=== PATIENT | female | born 1980 | race Hispanic/Latino ===

== ENCOUNTER 2018-12-01 07:36 | Emergency (ER) | payer MEDICARE, OTHER ==
[~2018-12-01] VITALS: Ht 165.1 cm; Wt 136.1 kg
[~2018-12-01 07:36] MED LIST: GABAPENTIN100 MG; NAPROSYN500 MG; ROBAXIN500 MG; SINGULAIR10 MG; Z.0.NORCO 10-325 T1; Z.0.SINGULAIR10 MG; Z.0.SOMA350 MG; Z.0.XANAX1 MG; [UNRECOGNIZED DRUG - OTHER]
--- OUTSIDE RECORDS SUMMARY | 2018-12-01 07:38 | XMS REPORT ---
Author Author [facility] Address Unknown Phone Unavailable Care Team Providers Care Farm Management Adviser Name Role Phone Unavailable Unavailable Payers Payer Name Policy Type Policy Number Effective Date Expiration Date Problems This patient has no known problems. Allergies, Adverse Reactions, Alerts Allergy Name Allergy Type Status Severity Reaction(s) Onset Date Inactive Date Treating Clinician Comments promethazine HCl DA Active U 2017-10-19 00:00:00 meperidine HCl DA Active U 2017-10-19 00:00:00 morphine DA Active U 2017-10-19 00:00:00 Medications This patient has no known medications.
[2018-12-01] MEDS ORDERED: KETOROLAC TROMETHAMINE 30 MG/ML VIAL IV STA (08:37)
[2018-12-01] MEDS ORDERED: DEXAMETHASONE SOD PHOS 10 MG/1 ML VIAL IV ONE (08:45)
[2018-12-01 08:55] LABS: BASOPHILS # (AUTO) 0.1 (0.0-0.1); BASOPHILS % 0.5 % (0.0-1.0); EOSINOPHILS # (AUTO) 0.2 (0.0-0.4); EOSINOPHILS % 1.9 % (0.0-6.0); HEMOGLOBIN 12.6 g/dL (12.0-16.0); LYMPHOCYTES # (AUTO) 3.2 (1.0-3.2); LYMPHOCYTES % 28.9 % (18.0-39.1); MEAN CORPUSCULAR HEMOGLOBIN 29.7 pg (28-32); MEAN CORPUSCULAR HGB CONC 32.3 g/dL (31-35); MONOCYTES # (AUTO) 0.8 (0.2-0.8); MONOCYTES % 7.4 % (4.4-11.3); NEUTROPHILS # (AUTO) 6.7 (2.1-6.9); NEUTROPHILS % 60.8 % (38.7-80.0); PLATELET COUNT 291 x10e3/uL (140-360); RED BLOOD COUNT 4.24 x10e6/uL (3.6-5.1); RED CELL DISTRIBUTION WIDTH 14.5 % (11.7-14.4)
[2018-12-01 09:09] LABS: ALANINE AMINOTRANSFERASE 13 IU/L (0-55); ALBUMIN 3.1 g/dL (3.5-5.0); ALBUMIN/GLOBULIN RATIO 0.9 (0.8-2.0); ALKALINE PHOSPHATASE 88 IU/L (40-150); ANION GAP 10.5 mmol/L (8-16); BLOOD UREA NITROGEN 15 mg/dL (7-26); BUN/CREATININE RATIO 23 (6-25); CALCIUM 8.6 mg/dL (8.4-10.2); CARBON DIOXIDE 24 mmol/L (22-29); CHLORIDE 103 mmol/L (98-107); CREATININE, SERUM 0.66 mg/dL (0.57-1.11); EST GLOMERULAR FILTRATION RATE > 60 ML/MIN (60-); GLUCOSE 105 mg/dL (74-118); POTASSIUM 3.5 mmol/L (3.5-5.1); SODIUM 134 mmol/L (136-145)
--- NOTE | 2018-12-01 09:33 | Diagnostic Imaging Report ---
EXAMINATION: PA and lateral views of the chest. COMPARISON: None CLINICAL HISTORY: Chest pain DISCUSSION: Lines/tubes: None. Lungs: The lungs are well inflated and clear. There is no evidence of pneumonia or pulmonary edema. Pleura: There is no pleural effusion or pneumothorax. Heart and mediastinum: The cardiomediastinal silhouette is normal. Bones and soft tissues: No acute bony abnormalities. Cervical spine fusion hardware partially visualized. IMPRESSION: No acute cardiopulmonary abnormalities. Signed by: Dr. Marcellus Cabrera M.D. on 12/01/2018 9:29 AM
== END 2018-12-01 10:24 | disposition home or self-care (01) ==
LOC: ER 07:36
DX: R07.89 Other chest pain (principal); R51 Headache; R05 Cough; E66.01 Morbid (severe) obesity due to excess calories
CPT/HCPCS: 36415; 71046; 80053; 81025; 83880; 84484; 85025; 93005; 99284; J1100; J1885

== ENCOUNTER 2019-02-23 17:03 | Emergency (ER) | payer MEDICARE, OTHER ==
[~2019-02-23] VITALS: Ht 165.1 cm; Wt 136.1 kg
--- OUTSIDE RECORDS SUMMARY | 2019-02-23 17:06 | XMS REPORT | Continuity of Care Document ---
Author Author [facility] Interface Address Unknown Phone Unavailable Problems Problem Status Onset Date Classification Date Reported Comments Source Medications Medication Details Route Status Patient Instructions Ordering Provider Order Date Source Alprazolam (Xanax) 1 Mg Tablet, As Needed Active 03/22/2013 [facility] Desloratadine (Clarinex) 5 Mg Tablet, Active 03/22/2013 [facility] Methocarbamol (Robaxin) 500 Mg Tablet, Active 03/22/2013 [facility] Montelukast Sodium (Singulair) 10 Mg Tablet, Active 03/22/2013 [facility] Carisoprodol (Soma) 350 Mg Tablet, As Needed Active 10/24/2012 [facility] Gabapentin 100 Mg Capsule Unknown Dose Active [facility] Hydrocodone Bit/Acetaminophen ([place] 10-325 Tablet) 1 Each Tablet As Needed Active [facility] Montelukast Sodium (Singulair) 10 Mg Tablet Active [facility] Naproxen (Naprosyn) 500 Mg Tablet Unknown Dose Active [facility] Allergies, Adverse Reactions, Alerts Substance Category Reaction Severity Reaction type Status Date Reported Comments Source Morphine rash Mild Allergy to Substance Active 10/30/2011 [facility] promethazine HCl HIVES Unknown Allergy to Substance Active 12/01/2018 [facility] Meperidine rash Mild Allergy to Substance Active 12/01/2018 [facility] Immunizations Immunization Date Given Site Status Last Updated Comments Source Results Order Name Results Value Reference Range Date Interpretation Comments Source Urine human chorionic gonadotropin (hCG) detection NEGATIVE NEGATIVE 12/01/2018 [facility] Blood leukocytes automated count (number/volume) 11.03 4.8 - 10.8 12/01/2018 [facility] Blood erythrocytes automated count (number/volume) 4.24 3.6 - 5.1 12/01/2018 [facility] Blood hemoglobin measurement (moles/volume) 12.6 12.0 - 16.0 12/01/2018 [facility] Automated blood hematocrit (volume fraction) 39.0 34.2 - 44.1 12/01/2018 [facility] Automated erythrocyte mean corpuscular volume 92.0 81 - 99 12/01/2018 [facility] Automated erythrocyte mean corpuscular hemoglobin (mass per erythrocyte) 29.7 28 - 32 12/01/2018 [facility] Automated erythrocyte mean corpuscular hemoglobin concentration measurement (mass/volume) 32.3 31 - 35 12/01/2018 [facility] RDW BldCo-Rto 14.5 11.7 - 14.4 12/01/2018 [facility] Automated blood platelet count (count/volume) 291 140 - 360 12/01/2018 [facility] Automated blood segmented neutrophil count as percentage of total leukocytes 60.8 38.7 - 80.0 12/01/2018 [facility] Automated blood lymphocyte count as percentage ot total leukocytes 28.9 18.0 - 39.1 12/01/2018 [facility] Automated blood monocyte count as percentage of total leukocytes 7.4 4.4 - 11.3 12/01/2018 [facility] Automated blood eosinophil count as percentage of total leukocytes 1.9 0.0 - 6.0 12/01/2018 [facility] Automated blood basophil count as percentage of total leukocytes 0.5 0.0 - 1.0 12/01/2018 [facility] IM GRANULOCYTES % 0.5 0.0 - 1.0 12/01/2018 [facility] Automated blood neutrophil count 6.7 2.1 - 6.9 12/01/2018 [facility] Blood lymphocytes count (number/volume) 3.2 1.0 - 3.2 12/01/2018 [facility] Blood monocytes automated count (number/volume) 0.8 0.2 - 0.8 12/01/2018 [facility] Automated blood eosinophil count 0.2 0.0 - 0.4 12/01/2018 [facility] Automated blood basophil count (count/volume) 0.1 0.0 - 0.1 12/01/2018 [facility] Absolute Immature Granulocyte (auto 0.06 0 - 0.1 12/01/2018 [facility] Serum or plasma sodium measurement (moles/volume) 134 136 - 145 12/01/2018 [facility] Serum or plasma potassium measurement (moles/volume) 3.5 3.5 - 5.1 12/01/2018 [facility] Serum or plasma chloride measurement (moles/volume) 103 98 - 107 12/01/2018 [facility] Serum or plasma carbon dioxide, total measurement (moles/volume) 24 22 - 29 12/01/2018 [facility] Serum or plasma anion gap 10.5 8 - 16 12/01/2018 [facility] Serum or plasma urea nitrogen measurement (mass/volume) 15 7 - 26 12/01/2018 [facility] Serum or plasma creatinine measurement (mass/volume) 0.66 0.57 - 1.11 12/01/2018 [facility] Serum or plasma urea nitrogen/creatinine mass ratio 23 6 - 25 12/01/2018 [facility] Estimated glomerular filtration rate (GFR) determination > 60 60 12/01/2018 [facility] Glucose measurement 105 74 - 118 12/01/2018 [facility] Serum or plasma calcium measurement (mass/volume) 8.6 8.4 - 10.2 12/01/2018 [facility] Serum or plasma total bilirubin measurement (mass/volume) 0.2 0.2 - 1.2 12/01/2018 [facility] Aspartate Amino Transf (AST/SGOT) 14 5 - 34 12/01/2018 [facility] Serum or plasma alanine aminotransferase measurement (enzymatic activity/volume) 13 0 - 55 12/01/2018 [facility] Serum or plasma protein measurement (mass/volume) 6.7 6.5 - 8.1 12/01/2018 [facility] Serum or plasma albumin measurement (mass/volume) 3.1 3.5 - 5.0 12/01/2018 [facility] Plasma globulin measurement (mass/volume) 3.6 2.3 - 3.5 12/01/2018 [facility] Serum or plasma albumin/globulin mass ratio 0.9 0.8 - 2.0 12/01/2018 [facility] Serum or plasma alkaline phosphatase measurement (enzymatic activity/volume) 88 40 - 150 12/01/2018 [facility] BNP Bld-mCnc < 10.0 0 - 100 12/01/2018 [facility] Troponin I measurement by highly sensitive enzyme immunoassay 0.003 0 - 0.300 12/01/2018 [facility] Vital Signs Vital Sign Value Date Comments Source Encounters Location Location Details Encounter Type Encounter Number Reason For Visit Attending Provider ADM Date DC Date Status Source Departed Emergency Room [id number] LEYDI JOHNSON MD 12/01/2018 12/01/2018 [facility] Procedures Procedure Code Date Perfomer Comments Source X-ray of chest, two views [id number] 12/01/2018 [facility]
[2019-02-23] MEDS ORDERED: ULTRAM50 MG PO (17:41)
[2019-02-23] MEDS ORDERED: VALIUM5 MG PO (17:41)
[2019-02-23] MEDS ORDERED: KETOROLAC TROMETHAMINE 60 MG/2 ML VIAL IM ONE (17:45)
[2019-02-23] MEDS ORDERED: DEXAMETHASONE SOD PHOS 10 MG/1 ML VIAL IM ONE (17:45)
[2019-02-23 18:21] VITALS: BP 145/88
== END 2019-02-23 18:35 | disposition home or self-care (01) ==
LOC: ER 17:03
DX: S16.1XXA Strain of muscle, fascia and tendon at neck level, initial encounter (principal); M48.02 Spinal stenosis, cervical region
CPT/HCPCS: 96372; 99283; J1100; J1885

== ENCOUNTER 2019-05-05 07:59 | Emergency (ER) | payer MEDICARE, OTHER ==
[~2019-05-05] VITALS: Ht 165.1 cm; Wt 136.1 kg
[~2019-05-05 07:59] MED LIST changes: +ULTRAM50 MG PO; +VALIUM5 MG PO
[2019-05-05] MEDS ORDERED: ASPIRIN 81 MG CHEW TAB PO ONE (08:00)
[2019-05-05] MEDS ORDERED: NITROGLYCERIN 0.4 MG SUBL SL PRN (08:00)
--- OUTSIDE RECORDS SUMMARY | 2019-05-05 08:02 | XMS REPORT | Continuity of Care Document ---
Author Author [employer] [facility] [employer] Address Unknown Phone Unavailable Care Team Providers Care Extrusion Engineer Name Role Phone [facility] Information [place] Unavailable Unavailable Problems No Data Provided for This Section Medications Medication Details Route Status Patient Instructions Ordering Provider Order Date Source Diazepam (Valium) 5 Mg Tablet Every 6 Hours as needed for Muscle Spasms Active [place] 02/23/2019 [facility] Tramadol Hcl (Ultram) 50 Mg Tablet Every 6 Hours as needed for Pain Active [place] 02/23/2019 [facility] Alprazolam (Xanax) 1 Mg Tablet, As Needed Active 03/22/2013 [facility] Desloratadine (Clarinex) 5 Mg Tablet, Active 03/22/2013 [facility] Methocarbamol (Robaxin) 500 Mg Tablet, Active 03/22/2013 [facility] Montelukast Sodium (Singulair) 10 Mg Tablet, Active 03/22/2013 [facility] Carisoprodol (Soma) 350 Mg Tablet, As Needed Active 10/24/2012 [facility] Gabapentin 100 Mg Capsule Unknown Dose Active [facility] Hydrocodone Bit/Acetaminophen ([place] 10-325 Tablet) 1 Each Tablet As Needed Active [facility] Montelukast Sodium (Singulair) 10 Mg Tablet Active [facility] Naproxen (Naprosyn) 500 Mg Tablet Unknown Dose Active [facility] Allergies, Adverse Reactions, Alerts Substance Category Reaction Severity Reaction type Status Date Reported Comments Source Morphine rash Mild Allergy to Substance Active 10/30/2011 [facility] promethazine HCl HIVES Unknown Allergy to Substance Active 12/01/2018 [facility] Meperidine rash Mild Allergy to Substance Active 12/01/2018 [facility] No Known Drug Allergies Unknown Allergy to Substance Active 02/23/2019 [facility] Immunizations No Data Provided for This Section Results Order Name Results Value Reference Range Date Interpretation Comments Source Urine human chorionic gonadotropin (hCG) detection NEGATIVE NEGATIVE 12/01/2018 [facility] Blood leukocytes automated count (number/volume) 11.03 4.8 - 10.8 12/01/2018 [facility] Blood erythrocytes automated count (number/volume) 4.24 3.6 - 5.1 12/01/2018 [facility] Blood hemoglobin measurement (moles/volume) 12.6 12.0 - 16.0 12/01/2018 [facility] Automated blood hematocrit (volume fraction) 39.0 34.2 - 44.1 12/01/2018 [facility] Automated erythrocyte mean corpuscular volume 92.0 81 - 99 12/01/2018 [facility] Automated erythrocyte mean corpuscular hemoglobin (mass per erythrocyte) 29.7 28 - 32 12/01/2018 [facility] Automated erythrocyte mean corpuscular hemoglobin concentration measurement (mass/volume) 32.3 31 - 35 12/01/2018 [facility] RDW BldCo-Rto 14.5 11.7 - 14.4 12/01/2018 [facility] Automated blood platelet count (count/volume) 291 140 - 360 12/01/2018 [facility] Automated blood segmented neutrophil count as percentage of total leukocytes 60.8 38.7 - 80.0 12/01/2018 [facility] Automated blood lymphocyte count as percentage ot total leukocytes 28.9 18.0 - 39.1 12/01/2018 [facility] Automated blood monocyte count as percentage of total leukocytes 7.4 4.4 - 11.3 12/01/2018 [facility] Automated blood eosinophil count as percentage of total leukocytes 1.9 0.0 - 6.0 12/01/2018 [facility] Automated blood basophil count as percentage of total leukocytes 0.5 0.0 - 1.0 12/01/2018 [facility] IM GRANULOCYTES % 0.5 0.0 - 1.0 12/01/2018 [facility] Automated blood neutrophil count 6.7 2.1 - 6.9 12/01/2018 [facility] Blood lymphocytes count (number/volume) 3.2 1.0 - 3.2 12/01/2018 [facility] Blood monocytes automated count (number/volume) 0.8 0.2 - 0.8 12/01/2018 [facility] Automated blood eosinophil count 0.2 0.0 - 0.4 12/01/2018 [facility] Automated blood basophil count (count/volume) 0.1 0.0 - 0.1 12/01/2018 [facility] Absolute Immature Granulocyte (auto 0.06 0 - 0.1 12/01/2018 [facility] Serum or plasma sodium measurement (moles/volume) 134 136 - 145 12/01/2018 [facility] Serum or plasma potassium measurement (moles/volume) 3.5 3.5 - 5.1 12/01/2018 [facility] Serum or plasma chloride measurement (moles/volume) 103 98 - 107 12/01/2018 [facility] Serum or plasma carbon dioxide, total measurement (moles/volume) 24 22 - 29 12/01/2018 [facility] Serum or plasma anion gap 10.5 8 - 16 12/01/2018 [facility] Serum or plasma urea nitrogen measurement (mass/volume) 15 7 - 26 12/01/2018 [facility] Serum or plasma creatinine measurement (mass/volume) 0.66 0.57 - 1.11 12/01/2018 [facility] Serum or plasma urea nitrogen/creatinine mass ratio 23 6 - 25 12/01/2018 [facility] Estimated glomerular filtration rate (GFR) determination > 60 60 12/01/2018 [facility] Glucose measurement 105 74 - 118 12/01/2018 [facility] Serum or plasma calcium measurement (mass/volume) 8.6 8.4 - 10.2 12/01/2018 [facility] Serum or plasma total bilirubin measurement (mass/volume) 0.2 0.2 - 1.2 12/01/2018 [facility] Aspartate Amino Transf (AST/SGOT) 14 5 - 34 12/01/2018 [facility] Serum or plasma alanine aminotransferase measurement (enzymatic activity/volume) 13 0 - 55 12/01/2018 [facility] Serum or plasma protein measurement (mass/volume) 6.7 6.5 - 8.1 12/01/2018 [facility] Serum or plasma albumin measurement (mass/volume) 3.1 3.5 - 5.0 12/01/2018 [facility] Plasma globulin measurement (mass/volume) 3.6 2.3 - 3.5 12/01/2018 [facility] Serum or plasma albumin/globulin mass ratio 0.9 0.8 - 2.0 12/01/2018 [facility] Serum or plasma alkaline phosphatase measurement (enzymatic activity/volume) 88 40 - 150 12/01/2018 [facility] BNP Bld-mCnc < 10.0 0 - 100 12/01/2018 [facility] Troponin I measurement by highly sensitive enzyme immunoassay 0.003 0 - 0.300 12/01/2018 [facility] Pathology Reports No Data Provided for This Section Diagnostic Reports No Data Provided for This Section Consultation Notes No Data Provided for This Section Discharge Summaries No Data Provided for This Section History and Physicals No Data Provided for This Section Vital Signs No Data Provided for This Section Encounters Location Location Details Encounter Type Encounter Number Reason For Visit Attending Provider ADM Date DC Date Status Source Departed Emergency Room [id number] LEYDI JOHNSON MD 12/01/2018 12/01/2018 [facility] Departed Emergency Room [id number] QUENTIN HOWARD MD 02/23/2019 02/23/2019 [facility] Procedures Procedure Code Date Perfomer Comments Source X-ray of chest, two views [id number] 12/01/2018 [facility]LEX [facility] Assessment and Plan No Data Provided for This Section Plan of Care Plan of Care Date Source Discharge Date 02/23/19 6:35pm Disposition HOME, SELF-CARE Condition at Discharge Stable Instructions/Education Provided Cervical Radiculopathy Cervical Strain Forms Provided Work/School Excuse Prescriptions See Medication Section Referrals JB SHERWOOD M.D. Order Date: Call for an appointment Address: [address] [place] [id number] Additional Instructions/Education No heavy lifting or strenuous activity. Apply ice packs for 15 to 20 minutes every 1-2 hours. This will help decrease pain and swelling. Take Motrin 400mg to 600mg every 4-6 hours as needed for pain. If prescribed pain medication on discharge, take the pain medication as prescribed and adhere to the warnings given for pain medication such as no swimming, driving operating heavy machinery, drinking or mixing with other medications that can interact with the narcotic. Follow up with your Primary Care Physician or referral physician listed for any concern. Return to the Emergency Department for any shortness of breath, loss of bowel / bladder control, saddle parasthesia, increased pain, or any new concerns. 02/23/2019 [facility] Discharge Date 12/01/18 10:24am Disposition HOME, SELF-CARE Condition at Discharge Stable Instructions/Education Provided Chest Pain - Noncardiac Chest Pain - Chest Wall Forms Provided Work/School Excuse Prescriptions See Medication Section Additional Instructions/Education FOLLOW UP WITH YOUR PRIMARY DOCTOR TAKE MEDICATIONS PRESCRIBED RETURN TO EMERGENCY ROOM FOR WORSENING SYMPTOMS 12/01/2018 [facility] Social History Social History Date Source Smoking Status Start Date Stop Date Current every day smoker 02/23/2019 [facility] Family History No Data Provided for This Section Advance Directives Order Name Results Value Date Source Advance Directives Advance Directives Directive Response Recorded Date/Time Does the patient have an advance directive? No 12/29/08 10:38pm Do you have a Directive to Physician? No 02/23/19 5:24pm Do you have a Medical Power of Risk Specialist? No 02/23/19 5:24pm Do you have an out of hospital Do Not Resuscitate Order? No 02/23/19 5:24pm Do you have any special needs we should be aware of? No 02/23/19 5:24pm Do you have a support person here with you today? Yes 02/23/19 5:24pm Did patient receive Notice of Privacy Practices? Yes 02/23/19 5:24pm Did patient receive patient rights and responsibilities? Yes 02/23/19 5:24pm 02/23/2019 [facility] Advance Directives Advance Directives Directive Response Recorded Date/Time Does the patient have an advance directive? No 12/29/08 10:38pm Do you have a Directive to Physician? No 12/01/18 8:30am Do you have a Medical Power of Risk Specialist? No 12/01/18 8:30am Do you have an out of hospital Do Not Resuscitate Order? No 12/01/18 8:30am Do you have any special needs we should be aware of? No 12/01/18 8:30am Do you have a support person here with you today? No 12/01/18 8:30am Did patient receive Notice of Privacy Practices? Yes 12/01/18 8:30am Did patient receive patient rights and responsibilities? Yes 12/01/18 8:30am 12/01/2018 [facility] Functional Status No Data Provided for This Section
--- OUTSIDE RECORDS SUMMARY | 2019-05-05 08:06 | XMS REPORT | Continuity of Care Document ---
Author Author [employer] [facility] PPT Reasearch Information [place] Address Unknown Phone Unavailable Care Team Providers Care Slurry Worker Name Role Phone [facility] Information [place] Unavailable Unavailable Problems No Data Provided for This Section Medications Medication Details Route Status Patient Instructions Ordering Provider Order Date Source Diazepam (Valium) 5 Mg Tablet Every 6 Hours as needed for Muscle Spasms Active Peralta 02/23/2019 [facility] Tramadol Hcl (Ultram) 50 Mg Tablet Every 6 Hours as needed for Pain Active Peralta 02/23/2019 [facility] Alprazolam (Xanax) 1 Mg Tablet, As Needed Active 03/22/2013 [facility] Desloratadine (Clarinex) 5 Mg Tablet, Active 03/22/2013 [facility] Methocarbamol (Robaxin) 500 Mg Tablet, Active 03/22/2013 [facility] Montelukast Sodium (Singulair) 10 Mg Tablet, Active 03/22/2013 [facility] Carisoprodol (Soma) 350 Mg Tablet, As Needed Active 10/24/2012 [facility] Gabapentin 100 Mg Capsule Unknown Dose Active [facility] Hydrocodone Bit/Acetaminophen ([place] 10-325 Tablet) 1 Each Tablet As Needed Active [facility] Montelukast Sodium (Singulair) 10 Mg Tablet Active [facility] Naproxen (Naprosyn) 500 Mg Tablet Unknown Dose Active [facility] Allergies, Adverse Reactions, Alerts Substance Category Reaction Severity Reaction type Status Date Reported Comments Source Morphine rash Mild Allergy to Substance Active 10/30/2011 [facility] promethazine HCl HIVES Unknown Allergy to Substance Active 12/01/2018 [facility] Meperidine rash Mild Allergy to Substance Active 12/01/2018 [facility] No Known Drug Allergies Unknown Allergy to Substance Active 02/23/2019 [facility] Immunizations No Data Provided for This Section Results Order Name Results Value Reference Range Date Interpretation Comments Source Urine human chorionic gonadotropin (hCG) detection NEGATIVE NEGATIVE 12/01/2018 [facility] Blood leukocytes automated count (number/volume) 11.03 4.8 - 10.8 12/01/2018 [facility] Blood erythrocytes automated count (number/volume) 4.24 3.6 - 5.1 12/01/2018 [facility] Blood hemoglobin measurement (moles/volume) 12.6 12.0 - 16.0 12/01/2018 [facility] Automated blood hematocrit (volume fraction) 39.0 34.2 - 44.1 12/01/2018 [facility] Automated erythrocyte mean corpuscular volume 92.0 81 - 99 12/01/2018 [facility] Automated erythrocyte mean corpuscular hemoglobin (mass per erythrocyte) 29.7 28 - 32 12/01/2018 [facility] Automated erythrocyte mean corpuscular hemoglobin concentration measurement (mass/volume) 32.3 31 - 35 12/01/2018 [facility] RDW BldCo-Rto 14.5 11.7 - 14.4 12/01/2018 [facility] Automated blood platelet count (count/volume) 291 140 - 360 12/01/2018 [facility] Automated blood segmented neutrophil count as percentage of total leukocytes 60.8 38.7 - 80.0 12/01/2018 [facility] Automated blood lymphocyte count as percentage ot total leukocytes 28.9 18.0 - 39.1 12/01/2018 [facility] Automated blood monocyte count as percentage of total leukocytes 7.4 4.4 - 11.3 12/01/2018 [facility] Automated blood eosinophil count as percentage of total leukocytes 1.9 0.0 - 6.0 12/01/2018 [facility] Automated blood basophil count as percentage of total leukocytes 0.5 0.0 - 1.0 12/01/2018 [facility] IM GRANULOCYTES % 0.5 0.0 - 1.0 12/01/2018 [facility] Automated blood neutrophil count 6.7 2.1 - 6.9 12/01/2018 [facility] Blood lymphocytes count (number/volume) 3.2 1.0 - 3.2 12/01/2018 [facility] Blood monocytes automated count (number/volume) 0.8 0.2 - 0.8 12/01/2018 [facility] Automated blood eosinophil count 0.2 0.0 - 0.4 12/01/2018 [facility] Automated blood basophil count (count/volume) 0.1 0.0 - 0.1 12/01/2018 [facility] Absolute Immature Granulocyte (auto 0.06 0 - 0.1 12/01/2018 [facility] Serum or plasma sodium measurement (moles/volume) 134 136 - 145 12/01/2018 [facility] Serum or plasma potassium measurement (moles/volume) 3.5 3.5 - 5.1 12/01/2018 [facility] Serum or plasma chloride measurement (moles/volume) 103 98 - 107 12/01/2018 [facility] Serum or plasma carbon dioxide, total measurement (moles/volume) 24 22 - 29 12/01/2018 [facility] Serum or plasma anion gap 10.5 8 - 16 12/01/2018 [facility] Serum or plasma urea nitrogen measurement (mass/volume) 15 7 - 26 12/01/2018 [facility] Serum or plasma creatinine measurement (mass/volume) 0.66 0.57 - 1.11 12/01/2018 [facility] Serum or plasma urea nitrogen/creatinine mass ratio 23 6 - 25 12/01/2018 [facility] Estimated glomerular filtration rate (GFR) determination > 60 60 12/01/2018 [facility] Glucose measurement 105 74 - 118 12/01/2018 [facility] Serum or plasma calcium measurement (mass/volume) 8.6 8.4 - 10.2 12/01/2018 [facility] Serum or plasma total bilirubin measurement (mass/volume) 0.2 0.2 - 1.2 12/01/2018 [facility] Aspartate Amino Transf (AST/SGOT) 14 5 - 34 12/01/2018 [facility] Serum or plasma alanine aminotransferase measurement (enzymatic activity/volume) 13 0 - 55 12/01/2018 [facility] Serum or plasma protein measurement (mass/volume) 6.7 6.5 - 8.1 12/01/2018 [facility] Serum or plasma albumin measurement (mass/volume) 3.1 3.5 - 5.0 12/01/2018 [facility] Plasma globulin measurement (mass/volume) 3.6 2.3 - 3.5 12/01/2018 [facility] Serum or plasma albumin/globulin mass ratio 0.9 0.8 - 2.0 12/01/2018 [facility] Serum or plasma alkaline phosphatase measurement (enzymatic activity/volume) 88 40 - 150 12/01/2018 [facility] BNP Bld-mCnc < 10.0 0 - 100 12/01/2018 [facility] Troponin I measurement by highly sensitive enzyme immunoassay 0.003 0 - 0.300 12/01/2018 [facility] Pathology Reports No Data Provided for This [...] DC Date Status Source Departed Emergency Room [id number] LEYDI JOHNSON MD 12/01/2018 12/01/2018 [facility] Departed Emergency Room [id number] QUENTIN HOWARD MD 02/23/2019 02/23/2019 [facility] Procedures Procedure Code Date Perfomer Comments Source X-ray of chest, two views [id number] 12/01/2018 ALEX [facility] Assessment and Plan No Data Provided for This Section Plan of Care Plan of Care Date Source Discharge Date 02/23/19 6:35pm Disposition HOME, SELF-CARE Condition at Discharge Stable Instructions/Education Provided Cervical Radiculopathy Cervical Strain Forms Provided Work/School Excuse Prescriptions See Medication Section Referrals JB SHERWOOD M.D. Order Date: Call for an appointment Address: [address] [place] [id number] Additional Instructions/Education No heavy lifting or [...] increased pain, or any new concerns. 02/23/2019 [facility] Discharge Date 12/01/18 10:24am Disposition HOME, SELF-CARE Condition at Discharge Stable Instructions/Education Provided Chest Pain - Noncardiac Chest Pain - Chest Wall Forms Provided Work/School Excuse Prescriptions See Medication Section Additional Instructions/Education FOLLOW UP WITH YOUR PRIMARY DOCTOR TAKE MEDICATIONS PRESCRIBED RETURN TO EMERGENCY ROOM FOR WORSENING SYMPTOMS 12/01/2018 [facility] Social History Social History Date Source Smoking Status Start Date Stop Date Current every day smoker 02/23/2019 [facility] Family History No Data Provided for This Section Advance Directives Order Name Results Value Date Source Advance Directives Advance Directives Directive Response Recorded Date/Time Does the patient have an advance directive? No 12/29/08 10:38pm Do you have a Directive to Physician? No 02/23/19 5:24pm Do you have a Medical Power of Typesetting Machine Tender? No 02/23/19 5:24pm Do you have an [...] rights and responsibilities? Yes 02/23/19 5:24pm 02/23/2019 [facility] Advance Directives Advance Directives Directive Response Recorded Date/Time Does the patient have an advance directive? No 12/29/08 10:38pm Do you have a Directive to Physician? No 12/01/18 8:30am Do you have a Medical Power of Typesetting Machine Tender? No 12/01/18 8:30am Do you have an [...] rights and responsibilities? Yes 12/01/18 8:30am 12/01/2018 [facility] Functional Status No Data Provided for This Section
--- NOTE | 2019-05-05 08:12 | NUR ---
received patient to er11 from ems. patient ambulated from stretcher to hospital stretcher. while attempting to have patient lay back and complete EKG, patient reported she was nauseas. emisis bag given to patient and asked to lay back so this nurse could complete EKG for reported chest pain with poor recollection of cardiac history. Patient declined to have male nurse complete EKG. this nurse confirmed patient request and departed er room with female charge nurse and female EMS still present for EKG and triage.
[2019-05-05 08:38] LABS: BASOPHILS # (AUTO) 0.1 (0.0-0.1); BASOPHILS % 0.5 % (0.0-1.0); EOSINOPHILS # (AUTO) 0.1 (0.0-0.4); EOSINOPHILS % 1.2 % (0.0-6.0); HEMATOCRIT 42.8 % (34.2-44.1); HEMOGLOBIN 13.9 g/dL (12.0-16.0); LYMPHOCYTES # (AUTO) 3.7 (1.0-3.2); LYMPHOCYTES % 31.5 % (18.0-39.1); MEAN CORPUSCULAR HEMOGLOBIN 29.4 pg (28-32); MEAN CORPUSCULAR HGB CONC 32.5 g/dL (31-35); MEAN CORPUSCULAR VOLUME 90.5 fL (81-99); MONOCYTES # (AUTO) 0.7 (0.2-0.8); NEUTROPHILS # (AUTO) 7.2 (2.1-6.9); NEUTROPHILS % 60.3 % (38.7-80.0); PLATELET COUNT 308 x10e3/uL (140-360); RED BLOOD COUNT 4.73 x10e6/uL (3.6-5.1); RED CELL DISTRIBUTION WIDTH 15.2 % (11.7-14.4)
--- NOTE | 2019-05-05 08:56 | NUR ---
AMBULATORY TO RESTROOM, DELAYED GOING TO RADIOLOGY BY PT.
[2019-05-05 08:57] LABS: ALANINE AMINOTRANSFERASE 19 IU/L (0-55); ALBUMIN 3.8 g/dL (3.5-5.0); ALBUMIN/GLOBULIN RATIO 1.2 (0.8-2.0); ALKALINE PHOSPHATASE 94 IU/L (40-150); ANION GAP 13.8 mmol/L (8-16); BLOOD UREA NITROGEN 14 mg/dL (7-26); BUN/CREATININE RATIO 22 (6-25); CALCIUM 9.6 mg/dL (8.4-10.2); CARBON DIOXIDE 24 mmol/L (22-29); CHLORIDE 106 mmol/L (98-107); CREATINE KINASE 47 IU/L (29-168); CREATININE, SERUM 0.63 mg/dL (0.57-1.11); EST GLOMERULAR FILTRATION RATE > 60 ML/MIN (60-); GLUCOSE 106 mg/dL (74-118); POTASSIUM 3.8 mmol/L (3.5-5.1); SODIUM 140 mmol/L (136-145)
[2019-05-05 09:00] LABS: AMPHETAMINES SCREEN,URINE NEGATIVE (NEGATIVE); BENZODIAZEPINES SCREEN,URINE POSITIVE (NEGATIVE); PHENCYCLIDINE SCREEN,URINE NEGATIVE (NEGATIVE)
[2019-05-05] MEDS ORDERED: ONDANSETRON HCL INJ 2MG/ML 2ML 2 MG/ML VIAL IV STA (09:06)
[2019-05-05] MEDS ORDERED: KETOROLAC TROMETHAMINE 30 MG/ML VIAL IV STA (09:06)
--- NOTE | 2019-05-05 09:36 | Diagnostic Imaging Report ---
Chest radiograph, single frontal view Clinical indication: Chest pain Comparison: 12/01/2018 Findings: The heart is within normal limits for size. The mediastinal and hilar contours are unremarkable. No focal consolidation, sizable pleural effusion, or pneumothorax. Cervical spinal hardware is partially visualized Impression: No radiographic evidence of acute cardiopulmonary process. Signed by: Daniel Guajardo MD on 05/05/2019 9:32 AM
[2019-05-05] MEDS ORDERED: OMEPRAZOLE40 MG PO (09:45)
[2019-05-05] MEDS ORDERED: SODIUM CHLORIDE 0.9% 1000ML 1,000 ML ONE (09:59)
[2019-05-05] MEDS ORDERED: SODIUM CHLORIDE 0.9% 1000ML 1,000 ML IV SCH (10:00)
== END 2019-05-05 11:39 | disposition home or self-care (01) ==
LOC: ER 08:04
DX: R07.89 Other chest pain (principal); I10 Essential (primary) hypertension; I25.10 Atherosclerotic heart disease of native coronary artery without angina pectoris; J45.909 Unspecified asthma, uncomplicated; M79.7 Fibromyalgia; E66.01 Morbid (severe) obesity due to excess calories
CPT/HCPCS: 36415; 71045; 80053; 80307; 82550; 82553; 84484; 85025; 85379; 93005; 99284; J1885; J2405; J7030

== ENCOUNTER 2019-05-11 22:41 | Emergency (ER) | payer MEDICARE, OTHER ==
[~2019-05-11] VITALS: Ht 165.1 cm; Wt 136.1 kg
[~2019-05-11 22:41] MED LIST changes: +OMEPRAZOLE40 MG PO
--- OUTSIDE RECORDS SUMMARY | 2019-05-11 22:43 | XMS REPORT | Clinical Summary ---
Author Author [facility] Organization [facility] Address Unknown Phone Unavailable Care Team Providers Care Carpenter Helper Name Role Phone Asked, No Pcp PCP Unavailable Allergies No Known Allergies Medications End Date Status Medication Sig Dispensed Refills Start Date Active clonIDINE (CATAPRES) 0.1 Take 1 tablet 0 MG tablet by mouth 9 every morning. Active cyclobenzaprine Take 1 tablet 0 (FLEXERIL) 10 mg tablet by mouth 3 9 (three) times a day. Active gabapentin (NEURONTIN) Take 1 tablet 0 800 mg tablet by mouth 3 9 (three) times a day. Active ibuprofen (ADVIL,MOTRIN) Take 1 tablet 0 800 MG tablet by mouth 3 9 (three) times a day. Active metoprolol succinate XL Take 1 tablet 0 (TOPROL-XL) 25 mg 24 hr by mouth 9 tablet nightly. Active montelukast (SINGULAIR) Take 1 tablet 0 10 mg tablet by mouth 9 nightly. 04/09/2019 ibuprofen (ADVIL,MOTRIN) Take 1 tablet 90 tablet 0 800 MG tablet (800 mg 9 total) by mouth 3 (three) times a day for 30 days. 04/09/2019 gabapentin (NEURONTIN) Take 2 180 capsule 0 400 mg capsule capsules (800 9 mg total) by mouth 3 (three) times a day for 30 days. 03/15/2019 cephalexin (KEFLEX) 500 Take 1 10 capsule 0 MG capsule capsule (500 9 mg total) by mouth 2 (two) times a day for 5 days. Active Problems Problem Noted Date Neck pain 03/10/2019 Cystitis 03/10/2019 Spinal stenosis of cervical region 03/10/2019 Intractable pain 03/08/2019 Encounters Care Team Description Date Type Specialty Estefany Blair MD Syed, Curry Coyne, Spinal stenosis of cervical region (Primary Dx); Intractable pain; Neck pain; Cystitis 03/08/2019 Emergency General Internal Medicine - 03/10/2019 after 05/10/2018 Social History Date Tobacco Use Types Packs/Day Years Used Current Every Day Smoker Cigarettes Smokeless Tobacco: Never Used Drinks/Week oz/Week Comments Alcohol Use social Yes Sex Assigned at Date Recorded Not on file Industry Job Start Date Occupation Not on file Not on file Not on file Travel End Travel History Travel Start No recent travel history available. Last Filed Vital Signs Reading Time Taken Comments Vital Sign 118/61 03/10/2019 11:01 AM CDT Blood Pressure 79 03/10/2019 11:01 AM CDT Pulse 36.8 C (98.2 F) 03/10/2019 11:01 AM CDT Temperature 18 03/10/2019 11:01 AM CDT Respiratory Rate 99% 03/10/2019 11:01 AM CDT Oxygen Saturation - - Inhaled Oxygen Concentration 144 kg (318 lb) 03/09/2019 3:48 AM CDT Weight 165.1 cm (5' 5") 03/08/2019 12:58 PM CDT Height 52.92 03/08/2019 12:58 PM CDT Body Mass Index Plan of Treatment Health Maintenance Due Date Last Done Comments CERVICAL CANCER SCREENING 2003 INFLUENZA VACCINE 04/13/2019 Procedures Comments Procedure Name Priority Date/Time Associated Diagnosis MRI CERVICAL SPINE WO STAT 03/09/2019 CONTRAST 5:33 PM CDT ECG 12-LEAD STAT 03/08/2019 4:38 PM CDT GRAM STAIN STAT 03/08/2019 4:23 PM CDT URINE CULTURE STAT 03/08/2019 4:23 PM CDT ESTIMATED GFR STAT 03/08/2019 3:47 PM CDT COMPREHENSIVE METABOLIC STAT 03/08/2019 PANEL 3:47 PM CDT HC COMPLETE BLD COUNT STAT 03/08/2019 W/AUTO DIFF 3:47 PM CDT URINALYSIS SCREEN AND STAT 03/08/2019 MICROSCOPY, WITH REFLEX 3:00 PM CDT TO CULTURE ECG ED PRELIMINARY Routine 03/08/2019 INTERPRETATION 1:40 PM CDT XR CERVICAL SPINE STAT 03/08/2019 COMPLETE 1:40 PM CDT after 05/10/2018 Results * MRI Cervical Spine Wo Contrast (03/09/2019 5:33 PM CDT) Specimen Narrative Performed At EXAMINATION:MRI CERVICAL SPINE WO CONTRAST [facility] CLINICAL HISTORY:neck pain COMPARISON: Cervical spine series dated 03/08/2019. FINDINGS: Noncontrast MRI of the cervical spine is interpreted. The cervical cord is normal in volume and signal intensity. There is ACDF of C5-C7 with anterior plate and screws. Bone marrow signal is normal. C2-3: Unremarkable. C3-4: Mild left uncal hypertrophy and moderate left foraminal stenosis. C4-5: Moderate disc degenerative changes. Uncal hypertrophy on the left with moderate to severe left foraminal stenosis. Mild canal stenosis with flattening of the ventral cord contour, most pronounced on the left. C5-6: Postoperative level. Mild canal stenosis with flattening of the left ventral cord contour. C6-7: Postoperative level. Mild canal stenosis with flattening of the left ventral cord contour. C7-T1: Moderate disc degenerative changes. Mild dorsal endplate spurring. Mild canal stenosis. Mild left facet arthrosis. [id number] bilateral foraminal stenosis. The paraspinous soft tissues are unremarkable. IMPRESSION: ACDF of C5-C7. 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 Multilevel mild canal stenosis. [id number] Procedure Note Hm Interface, Radiology Results Incoming - 03/09/2019 5:46 PM CDT EXAMINATION: MRI CERVICAL SPINE WO CONTRAST CLINICAL HISTORY: neck pain COMPARISON: Cervical spine series dated 03/08/2019. FINDINGS: Noncontrast MRI of the cervical spine is interpreted. The cervical cord is normal in volume and signal intensity. There is ACDF of C5-C7 with anterior plate and screws. Bone marrow signal is normal. C2-3: Unremarkable. C3-4: Mild left uncal hypertrophy and moderate left foraminal stenosis. C4-5: Moderate disc degenerative changes. Uncal hypertrophy on the left with moderate to severe left foraminal stenosis. Mild canal stenosis with flattening of the ventral cord contour, most pronounced on the left. C5-6: Postoperative level. Mild canal stenosis with flattening of the left ventral cord contour. C6-7: Postoperative level. Mild canal stenosis with flattening of the left ventral cord contour. C7-T1: Moderate disc degenerative changes. Mild dorsal endplate spurring. Mild canal stenosis. Mild left facet arthrosis. [id number] bilateral foraminal stenosis. The paraspinous soft tissues are unremarkable. IMPRESSION: ACDF of C5-C7. 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 Multilevel mild canal stenosis. [id number] Performing Organization Address City/[facility]/Zipcode Phone Number [facility] [address] [place] [address] * ECG 12 lead (03/08/2019 4:38 PM CDT) Ventricular 72 [facility] rate Atrial rate 72 [facility] PA interval 154 [facility] QRSD interval 90 [facility] QT interval 386 [facility] QTC interval 422 [facility] P axis 1 65 [facility] QRS axis 1 57 [facility] T wave axis 41 [facility] EKG impression Normal sinus rhythm-Normal [facility] MUSE ECG-No previous ECGs available- Specimen Narrative Performed At Performing Organization Address City/[facility]/Zipcode Phone Number [facility] [address] [place] [address] * Gram stain (03/08/2019 4:23 PM CDT) Gram stain No WBC's [place] result Moderate Gram variable rods MANDAEN Many Gram positive cocci in HOSPITAL pairs Comment: Specimen Information Specimen Source: Urine Specimen Site: Clean catch Specimen Urine Performing Organization Address City/[facility]/Zipcode Phone Number [facility] DEPARTMENT OF [address] [place] [id number] PATHOLOGY AND GENOMIC MEDICINE [place] MANDAEN [address] [place], [place] [id number] HOSPITAL * Urine culture (03/08/2019 4:23 PM CDT) Pathologist [facility] Urine culture Mixed bhumika 10-4 col/cc [place] isolate Comment: MANDAEN Specimen Information HOSPITAL Specimen Source: Urine Specimen Site: Clean catch Specimen Urine Performing Organization Address City/[facility]/Zipcode Phone Number [facility] DEPARTMENT OF [address] [place] [address] PATHOLOGY AND GENOMIC MEDICINE [place] [id number] [address] * Estimated GFR (03/08/2019 3:47 PM CDT) Pathologist [facility] Estimated GFR >=90 mL/min/1.73 m2 [place] Comment: [facility] rpretation G1 >=90 Normal or high G2 60-89Mildly decreased [id number] Mildly to moderately decreased [id number] Moderately to severely decreased G4 15-29Severely decreased G5 <15Kidney failure The eGFR was calculated using the Chronic Kidney Disease Epidemiology Collaboration (CKD-EPI) equation. Interpretation is based on recommendations of the National Kidney Foundation-Kidney Disease Outcomes Quality Initiative (NKF-KDOQI) published in 2014. Specimen Plasma specimen Performing Organization Address City/[facility]/Zipcode [place] [address] [address] [place] [phone] PATHOLOGY AND GENOMIC MEDICINE [facility] [address] * CBC with platelet and differential (03/08/2019 3:47 PM CDT) [facility] WBC 12.05 (H) 4.50 - 11.00 k/uL [facility] RBC 4.44 4.20 - 5.50 m/uL [facility] HGB 12.9 12.0 - 16.0 g/dL [facility] HCT 41.3 37.0 - 47.0 % [facility] MCV 93.0 82.0 - 100.0 fL [facility] MCH 29.1 27.0 - 34.0 pg [facility] MCHC 31.2 31.0 - 37.0 g/dL [facility] RDW - SD 49.7 37.0 - 55.0 fL [facility] MPV 9.5 8.8 - 13.2 fL [facility] Platelet count 242 150 - 400 k/uL [facility] Nucleated RBC 0.00 /100 WBC [facility] Neutrophils 66.6 39.0 - 69.0 % [facility] Lymphocytes 25.0 25.0 - 45.0 % [facility] Monocytes 6.2 0.0 - 10.0 % [facility] Eosinophils 1.3 0.0 - 5.0 % [facility] Basophils 0.5 0.0 - 1.0 % [facility] Specimen Blood Performing Organization Address City/State/Zipcode [place] [address] [place] [address] PATHOLOGY AND GENOMIC MEDICINE [facility] [address] [place] [address] [facility] * Comprehensive metabolic panel (03/08/2019 3:47 PM CDT) Sodium 141 135 - 148 mEq/L [facility] Potassium 4.0 3.5 - 5.0 mEq/L [facility] Chloride 106 98 - 112 mEq/L [facility] CO2 23 (L) 24 - 31 mEq/L [facility] Anion gap 12@ANIO 7 - 15 mEq/L [facility] BUN 13 6 - 20 mg/dL [facility] Creatinine 0.70 0.50 - 0.90 mg/dL [facility] Glucose 89 65 - 99 mg/dL [facility] Calcium 9.1 8.3 - 10.2 mg/dL [facility] Protein 6.8 6.3 - 8.3 g/dL [place] Comment: [facility] 4.6-7.0 g/dL 1 week 4.4-7.6 g/dL 7 months-1year 5.1-7.3 g/dL 1-2 years5.6-7 .5 g/dL >3 years6.0-8 .0 g/dL 18-150 6.3-8.3 g/dL Albumin 3.5 3.5 - 5.0 g/dL [facility] A/G ratio 1.1 0.7 - 3.8 [facility] Alkaline 129 (H) 35 - 104 U/L [place] phosphatase [facility] AST 26 10 - 35 U/L [facility] ALT 30 5 - 50 U/L [facility] Total bilirubin 0.2 0.0 - 1.2 mg/dL [facility] Specimen Plasma specimen Performing Organization Address City/State/Zipcode Phone Number [facility] [place] [id number] [place] [address] [place] [address] PATHOLOGY AND GENOMIC MEDICINE [facility] [id number] [place] [address] * Urinalysis screen and microscopy, with reflex to culture (03/08/2019 3:00 PM CDT) Specimen site Clean catch [facility] Color, UA Yellow [facility] Appearance, UA Cloudy [facility] Specific 1.021 1.001 - 1.035 [place] gravity, UA [facility] pH, UA 5.0 5.0 - 8.5 [facility] Protein, UA Negative Negative [facility] Glucose, UA Negative Negative [facility] Ketones, UA Negative Negative [facility] Bilirubin, UA Negative Negative [facility] Blood, UA Small (A) Negative [facility] Nitrite, UA Negative Negative [facility] Urobilinogen, Negative <2.0 [facility] Leukocyte Negative Negative [place] esterase, UA [facility] Epithelial Many Few /HPF [place] cells, UA [facility] Round Many 0 - 1 /HPF [place] epithelial [facility] cells, [facility] WBC, UA 21-40 (H) 0 - 4 /HPF [facility] RBC, UA 0-5 0 - 5 /HPF [facility] Bacteria, UA Few None seen [facility] WBC clumps, UA Few (A) [facility] Yeast, UA None seen [facility] Yeast with None seen [place] [facility] Specimen Urine Performing Organization Address City/State/Zipcode Phone Number [facility] DEPARTMENT OF [address] [place] [address] [place] [address] PATHOLOGY AND GENOMIC MEDICINE [facility] [id number] [place] [address] [place] [phone] [facility] * ECG ED Preliminary Interpretation - Not an Order (03/08/2019 1:40 PM CDT) Narrative Performed At Raúl Curry CoyneDO 03/09/2019 11:46 AM ECG ED Preliminary Interpretation - Not an Order Performed by: Lyndsey Cevallos PA-C Authorized by: Lyndsey Cevallos PA-C ECG reviewed by ED Physician in the absence of a drop wirer: yes Interpretation: Interpretation: normal Rate: ECG rate:72 ECG rate assessment: normal Rhythm: Rhythm: sinus rhythm Ectopy: Ectopy: none QRS: QRS axis:Normal QRS intervals:Normal Conduction: Conduction: normal ST segments: ST segments:Normal T waves: T waves: normal * XR Cervical Spine Complete (03/08/2019 1:40 PM CDT) Specimen Narrative Performed At EXAMINATION: XR CERVICAL SPINE COMPLETE [facility] CLINICAL HISTORY: neck pain COMPARISON:Cervical x-ray dated January 01, 2011 IMPRESSION: 6 views of the cervical spine were obtained. Anterior fusion hardware is again noted from C5 through C7. There is progressive disc disease at C4-5 with loss of disc height and prominent anterior osteophytosis. There is kyphosis now noted at C3-4. Oblique images shows uncovertebral arthrosis and facet disease most prominent on the left at C3-4 and C4-5. Prevertebral soft tissues are within normal limits. There is no acute fracture. [id number] Procedure Note Hm Interface, Radiology Results Incoming - 03/08/2019 1:55 PM CDT EXAMINATION: XR CERVICAL SPINE COMPLETE CLINICAL HISTORY: neck pain COMPARISON: Cervical x-ray dated January 01, 2011 IMPRESSION: 6 views of the cervical spine were obtained. Anterior fusion hardware is again noted from C5 through C7. There is progressive disc disease at C4-5 with loss of disc height and prominent anterior osteophytosis. There is kyphosis now noted at C3- 4. Oblique images shows uncovertebral arthrosis and facet disease most prominent on the left at C3-4 and C4-5. Prevertebral soft tissues are within normal limits. There is no acute fracture. [id number] Performing Organization Address City/State/Zipcode Phone Number [facility] [address] [place] [address] after 05/10/2018 Insurance Type Payer Benefit Subscriber ID Effective Phone Address Plan / Dates Group Medicaid MEDICAID MEDICAID xxxxxxxxx 2018-P resent HMO [facility] MEDICARE [facility] DUAL xxxxxxxxx 2017-P COMPLETE resent [facility] Advance Directives For more information, please contact: [phone] Patient French Binding Folder Explanation Type Date Recorded Advance Directives, 03/08/2019 12:55 PM Living Will and Medical Power of Gas Distribution Supervisor
--- OUTSIDE RECORDS SUMMARY | 2019-05-11 22:44 | XMS REPORT | Continuity of Care Document ---
Author Author [facility] Motive Power system Information DFMSim Address Unknown Phone Unavailable Care Team Providers Care Tension Machine Operator Name Role [facility] Information [place] Unavailable Unavailable Problems No Data Provided for This Section Medications Medication Details Route Status Patient Instructions Ordering Provider Order Date Source Diazepam (Valium) 5 Mg Tablet Every 6 Hours as needed for Muscle Spasms Active Peralta 02/23/2019 [facility] Tramadol Hcl (Ultram) 50 Mg Tablet Every 6 Hours as needed for Pain Active Peralta 02/23/2019 [facility] Alprazolam (Xanax) 1 Mg Tablet, As Needed Active 03/22/2013 [facility] Desloratadine (Clarinex) 5 Mg Tablet, Active 03/22/2013 [facility] Methocarbamol (Robaxin) 500 Mg Tablet, Active 03/22/2013 [facility] Montelukast Sodium (Singulair) 10 Mg Tablet, Active 03/22/2013 [facility] Carisoprodol (Soma) 350 Mg Tablet, As Needed Active 10/24/2012 [facility] Gabapentin 100 Mg Capsule Unknown Dose Active [facility] Hydrocodone Bit/Acetaminophen ([place] 10-325 Tablet) 1 Each Tablet As Needed Active [facility] Montelukast Sodium (Singulair) 10 Mg Tablet Active [facility] Naproxen (Naprosyn) 500 Mg Tablet Unknown Dose Active [facility] Allergies, Adverse Reactions, Alerts Substance Category Reaction Severity Reaction type Status Date Reported Comments Source Morphine rash Mild Allergy to Substance Active 10/30/2011 [facility] promethazine HCl HIVES Unknown Allergy to Substance Active 12/01/2018 [facility] Meperidine rash Mild Allergy to Substance Active 12/01/2018 [facility] No Known Drug Allergies Unknown Allergy to Substance Active 02/23/2019 [facility] Immunizations No Data Provided for This Section Results Order Name Results Value Reference Range Date Interpretation Comments Source Urine human chorionic gonadotropin (hCG) detection NEGATIVE NEGATIVE 12/01/2018 [facility] Blood leukocytes automated count (number/volume) 11.03 4.8 - 10.8 12/01/2018 [facility] Blood erythrocytes automated count (number/volume) 4.24 3.6 - 5.1 12/01/2018 [facility] Blood hemoglobin measurement (moles/volume) 12.6 12.0 - 16.0 12/01/2018 [facility] Automated blood hematocrit (volume fraction) 39.0 34.2 - 44.1 12/01/2018 [facility] Automated erythrocyte mean corpuscular volume 92.0 81 - 99 12/01/2018 [facility] Automated erythrocyte mean corpuscular hemoglobin (mass per erythrocyte) 29.7 28 - 32 12/01/2018 [facility] Automated erythrocyte mean corpuscular hemoglobin concentration measurement (mass/volume) 32.3 31 - 35 12/01/2018 [facility] RDW BldCo-Rto 14.5 11.7 - 14.4 12/01/2018 [facility] Automated blood platelet count (count/volume) 291 140 - 360 12/01/2018 [facility] Automated blood segmented neutrophil count as percentage of total leukocytes 60.8 38.7 - 80.0 12/01/2018 [facility] Automated blood lymphocyte count as percentage ot total leukocytes 28.9 18.0 - 39.1 12/01/2018 [facility] Automated blood monocyte count as percentage of total leukocytes 7.4 4.4 - 11.3 12/01/2018 [facility] Automated blood eosinophil count as percentage of total leukocytes 1.9 0.0 - 6.0 12/01/2018 [facility] Automated blood basophil count as percentage of total leukocytes 0.5 0.0 - 1.0 12/01/2018 [facility] IM GRANULOCYTES % 0.5 0.0 - 1.0 12/01/2018 [facility] Automated blood neutrophil count 6.7 2.1 - 6.9 12/01/2018 [facility] Blood lymphocytes count (number/volume) 3.2 1.0 - 3.2 12/01/2018 [facility] Blood monocytes automated count (number/volume) 0.8 0.2 - 0.8 12/01/2018 [facility] Automated blood eosinophil count 0.2 0.0 - 0.4 12/01/2018 [facility] Automated blood basophil count (count/volume) 0.1 0.0 - 0.1 12/01/2018 [facility] Absolute Immature Granulocyte (auto 0.06 0 - 0.1 12/01/2018 [facility] Serum or plasma sodium measurement (moles/volume) 134 136 - 145 12/01/2018 [facility] Serum or plasma potassium measurement (moles/volume) 3.5 3.5 - 5.1 12/01/2018 [facility] Serum or plasma chloride measurement (moles/volume) 103 98 - 107 12/01/2018 [facility] Serum or plasma carbon dioxide, total measurement (moles/volume) 24 22 - 29 12/01/2018 [facility] Serum or plasma anion gap 10.5 8 - 16 12/01/2018 [facility] Serum or plasma urea nitrogen measurement (mass/volume) 15 7 - 26 12/01/2018 [facility] Serum or plasma creatinine measurement (mass/volume) 0.66 0.57 - 1.11 12/01/2018 [facility] Serum or plasma urea nitrogen/creatinine mass ratio 23 6 - 25 12/01/2018 [facility] Estimated glomerular filtration rate (GFR) determination > 60 60 12/01/2018 [facility] Glucose measurement 105 74 - 118 12/01/2018 [facility] Serum or plasma calcium measurement (mass/volume) 8.6 8.4 - 10.2 12/01/2018 [facility] Serum or plasma total bilirubin measurement (mass/volume) 0.2 0.2 - 1.2 12/01/2018 [facility] Aspartate Amino Transf (AST/SGOT) 14 5 - 34 12/01/2018 [facility] Serum or plasma alanine aminotransferase measurement (enzymatic activity/volume) 13 0 - 55 12/01/2018 [facility] Serum or plasma protein measurement (mass/volume) 6.7 6.5 - 8.1 12/01/2018 [facility] Serum or plasma albumin measurement (mass/volume) 3.1 3.5 - 5.0 12/01/2018 [facility] Plasma globulin measurement (mass/volume) 3.6 2.3 - 3.5 12/01/2018 [facility] Serum or plasma albumin/globulin mass ratio 0.9 0.8 - 2.0 12/01/2018 [facility] Serum or plasma alkaline phosphatase measurement (enzymatic activity/volume) 88 40 - 150 12/01/2018 [facility] BNP Bld-mCnc < 10.0 0 - 100 12/01/2018 [facility] Troponin I measurement by highly sensitive enzyme immunoassay 0.003 0 - 0.300 12/01/2018 [facility] Pathology Reports No Data Provided for [...] DC Date Status Source Departed Emergency Room [id number] LEYDI JOHNSON MD 12/01/2018 12/01/2018 [facility] Departed Emergency Room [id number] QUENTIN HOWARD MD 02/23/2019 02/23/2019 [facility] Procedures Procedure Code Date Perfomer Comments Source X-ray of chest, two views [id number] 12/01/2018 ALEX [facility] Assessment and Plan No Data Provided for This Section Plan of Care Plan of Care Date Source Discharge Date 02/23/19 6:35pm Disposition HOME, SELF-CARE Condition at Discharge Stable Instructions/Education Provided Cervical Radiculopathy Cervical Strain Forms Provided Work/School Excuse Prescriptions See Medication Section Referrals JB SHERWOOD M.D. Order Date: Call for an appointment Address: [address] [place] [id number] Additional Instructions/Education No heavy lifting or [...] increased pain, or any new concerns. 02/23/2019 [facility] Discharge Date 12/01/18 10:24am Disposition HOME, SELF-CARE Condition at Discharge Stable Instructions/Education Provided Chest Pain - Noncardiac Chest Pain - Chest Wall Forms Provided Work/School Excuse Prescriptions See Medication Section Additional Instructions/Education FOLLOW UP WITH YOUR PRIMARY DOCTOR TAKE MEDICATIONS PRESCRIBED RETURN TO EMERGENCY ROOM FOR WORSENING SYMPTOMS 12/01/2018 [facility] Social History Social History Date Source Smoking Status Start Date Stop Date Current every day smoker 02/23/2019 [facility] Family History No Data Provided for This Section Advance Directives Order Name Results Value Date Source Advance Directives Advance Directives Directive Response Recorded Date/Time Does the patient have an advance directive? No 12/29/08 10:38pm Do you have a Directive to Physician? No 02/23/19 5:24pm Do you have a Medical Power of Database Administration Associate? No 02/23/19 5:24pm Do you have an [...] rights and responsibilities? Yes 02/23/19 5:24pm 02/23/2019 [facility] Advance Directives Advance Directives Directive Response Recorded Date/Time Does the patient have an advance directive? No 12/29/08 10:38pm Do you have a Directive to Physician? No 12/01/18 8:30am Do you have a Medical Power of Database Administration Associate? No 12/01/18 8:30am Do you have an [...] rights and responsibilities? Yes 12/01/18 8:30am 12/01/2018 [facility] Functional Status No Data Provided for This Section
[2019-05-11] MEDS ORDERED: KETOROLAC TROMETHAMINE 30 MG/ML VIAL IM STA (23:23)
[2019-05-11 23:54] LABS: BILIRUBIN,URINE NEGATIVE (NEGATIVE); CLARITY,URINE SL CLOUDY (CLEAR); COLOR,URINE YELLOW (YELLOW); KETONES,URINE NEGATIVE (NEGATIVE); LEUKOCYTE ESTERASE ,URINE NEGATIVE (NEGATIVE); NITRITE,URINE NEGATIVE (NEGATIVE); PROTEIN,URINE DIPSTICK NEGATIVE (NEGATIVE); URINE UROBILINOGEN 0.2 mg/dL (0.2 - 1)
[2019-05-11 23:56] LABS: PHENCYCLIDINE SCREEN,URINE NEGATIVE (NEGATIVE)
[2019-05-11 23:57] LABS: AMPHETAMINES SCREEN,URINE POSITIVE (NEGATIVE); BENZODIAZEPINES SCREEN,URINE POSITIVE (NEGATIVE)
[2019-05-12 00:18] LABS: BACTERIA,URINE MANY /HPF; EPITHELIAL CELLS,URINE MANY /LPF
[2019-05-12] MEDS ORDERED: ONDANSETRON HCL 4 MG ORAL DISINTEGRATING TAB ONE (00:23)
[2019-05-12] MEDS ORDERED: ONDANSETRON HCL 4 MG ORAL DISINTEGRATING TAB PO ONE (00:30)
--- NOTE | 2019-05-12 00:31 | Diagnostic Imaging Report ---
EXAMINATION: CT of the abdomen and pelvis without contrast. TECHNIQUE: Spiral CT images of the abdomen and pelvis were performed from the lung bases to the lesser trochanters. No intravenous contrast was given per renal stone protocol. Coronal and sagittal reformatted images were obtained. COMPARISON: 10/24/2012 CLINICAL HISTORY:Abdominal pain, nausea, vomiting, bilateral flank pain DISCUSSION: ABSENCE OF INTRAVENOUS CONTRAST DECREASES SENSITIVITY FOR DETECTION OF FOCAL LESIONS AND VASCULAR PATHOLOGY. ABDOMEN/PELVIS: LOWER THORAX: Subsegmental atelectasis in the dependent lower lobes. HEPATOBILIARY:No focal hepatic lesions. No biliary ductal dilation. The gallbladder is normal. SPLEEN: No splenomegaly. PANCREAS: No focal masses or ductal dilatation. ADRENALS: No adrenal nodules. KIDNEYS/URETERS: No hydronephrosis, stones, or solid mass lesions. PELVIC ORGANS/BLADDER: Urinary bladder is incompletely distended and poorly evaluated. 4.8 cm left adnexal cyst. Uterus is neutral in position and appears normal. PERITONEUM/RETROPERITONEUM: No free air or fluid. LYMPH NODES: No pelvic sidewall, retroperitoneal, or mesenteric lymphadenopathy. VESSELS: Limited evaluation without intravenous contrast. The abdominal aorta is nonaneurysmal. GI TRACT: The large bowel is notable for diverticula scattered along the descending and sigmoid colon without wall thickening or adjacent inflammatory change. Normal appendix. No small bowel dilatation to suggest obstruction. BONES AND SOFT TISSUES: No osseous destructive lesion. No focal soft tissue abnormalities. IMPRESSION: No acute intra-abdominal or pelvic CT abnormalities. 4.8 cm left ovarian cyst. Large bowel diverticulosis without findings of diverticulitis. Signed by: Dr. Marcellus Cabrera M.D. on 05/12/2019 12:27 AM
[2019-05-12 00:52] VITALS: BP 136/84
== END 2019-05-12 00:52 | disposition home or self-care (01) ==
LOC: ER 22:41
DX: N30.00 Acute cystitis without hematuria (principal)
CPT/HCPCS: 74176; 80307; 81001; 81025; 96372; 99283; J1885; Q0162

== ENCOUNTER 2019-05-16 10:42 | Emergency (ER) | payer MEDICARE, OTHER ==
[~2019-05-16] VITALS: Ht 165.1 cm; Wt 136.1 kg
--- OUTSIDE RECORDS SUMMARY | 2019-05-16 10:44 | XMS REPORT | Clinical Summary ---
Author Author [facility] Organization [facility] Address Unknown Phone Unavailable Care Team Providers Care Motor Adjuster Name Role Phone Asked, No Pcp PCP [...] Emergency General Internal Medicine - 03/10/2019 after 05/15/2018 Social History Date Tobacco Use Types Packs/Day [...] STAT 03/08/2019 COMPLETE 1:40 PM CDT after 05/15/2018 Results * MRI Cervical Spine Wo Contrast [...] Mild canal stenosis. Mild left facet arthrosis. Uapb-dh-nthafuve bilateral foraminal stenosis. The paraspinous soft tissues are unremarkable. IMPRESSION: ACDF of C5-C7. 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 Multilevel mild canal stenosis. [id number] Procedure Note Hm Interface, Radiology Results Incoming [...] Mild canal stenosis. Mild left facet arthrosis. Sess-yd-fkctkucf bilateral foraminal stenosis. The paraspinous soft tissues are unremarkable. IMPRESSION: ACDF of C5-C7. 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 Multilevel mild canal stenosis. [id number] Performing Organization Address City/[facility]/Zipcode Phone Number [facility] [address] [place] [address] * ECG 12 lead (03/08/2019 4:38 PM CDT) Ventricular 72 [facility] rate Atrial rate 72 [facility] IA interval 154 [facility] QRSD interval 90 [facility] QT interval 386 [facility] QTC interval 422 [facility] P axis 1 65 [facility] QRS axis 1 57 [facility] T wave axis 41 [facility] EKG impression Normal sinus rhythm-Normal [facility] MUSE ECG-No previous ECGs available- Specimen Narrative Performed At Performing Organization Address City/[facility]/Zipcode Phone Number [facility] [address] [place] [address] * Gram stain (03/08/2019 4:23 PM CDT) Gram stain No WBC's [facility]Y result Moderate Gram variable rods [facility] Many Gram positive cocci in HOSPITAL pairs Comment: Specimen Information Specimen Source: Urine Specimen Site: Clean catch Specimen Urine Performing Organization Address City/[facility]/Zipcode Phone Number [facility] DEPARTMENT OF [address] [place] [address] PATHOLOGY AND GENOMIC MEDICINE DAIS[place] [facility] [address] [place], [place] [id number] HOSPITAL * Urine culture (03/08/2019 4:23 PM CDT) Pathologist [facility] Urine culture Mixed bhumika 10-4 col/cc DAISY isolate Comment: [facility] Specimen Information HOSPITAL Specimen Source: Urine Specimen Site: Clean catch Specimen Urine Performing Organization Address City/[facility]/Zipcode Phone Number [facility] DEPARTMENT OF [address] [place] [address] PATHOLOGY AND GENOMIC MEDICINE [place] [id number] [address] * Estimated GFR (03/08/2019 3:47 PM CDT) Pathologist [facility] Estimated GFR >=90 mL/min/1.73 m2 DAISY Comment: [facility] rpretation G1 >=90 Normal or high G2 60-89Mildly decreased V4l79-50 Mildly to moderately decreased [id number] Moderately to severely decreased G4 15-29Severely decreased G5 <15Kidney failure The eGFR was calculated using the Chronic Kidney Disease Epidemiology Collaboration (CKD-EPI) equation. Interpretation is based on recommendations of the National Kidney Foundation-Kidney Disease Outcomes Quality Initiative (NKF-KDOQI) published in 2014. Specimen Plasma specimen Performing Organization Address City/[facility]/Zipcode [place] [address] [employer] [place] [phone] PATHOLOGY AND GENOMIC MEDICINE [facility] [address] [employer] [address] * CBC with platelet and differential (03/08/2019 3:47 PM CDT) [facility] WBC 12.05 (H) 4.50 - 11.00 k/uL [facility] RBC 4.44 4.20 - 5.50 m/uL [facility] HGB 12.9 12.0 - 16.0 g/dL [facility] HCT 41.3 37.0 - 47.0 % [facility] MCV 93.0 82.0 - 100.0 fL [facility] MCH 29.1 27.0 - 34.0 pg [facility] MCHC 31.2 31.0 - 37.0 g/dL [facility] RDW - SD 49.7 37.0 - 55.0 fL [facility] MPV 9.5 8.8 - 13.2 fL [facility] Platelet count 242 150 - 400 k/uL [facility] Nucleated RBC 0.00 /100 WBC [facility] Neutrophils 66.6 39.0 - 69.0 % [facility] Lymphocytes 25.0 25.0 - 45.0 % [facility] Monocytes 6.2 0.0 - 10.0 % [facility] Eosinophils 1.3 0.0 - 5.0 % [facility] Basophils 0.5 0.0 - 1.0 % [facility] Specimen Blood Performing Organization Address City/State/Zipcode [place] [address] [place] [address] PATHOLOGY AND GENOMIC MEDICINE [facility] [address] [employer] [place] [address] [facility] * Comprehensive metabolic panel (03/08/2019 3:47 PM CDT) Sodium 141 135 - 148 mEq/L [facility] Potassium 4.0 3.5 - 5.0 mEq/L [facility] Chloride 106 98 - 112 mEq/L [facility] CO2 23 (L) 24 - 31 mEq/L [facility] Anion gap 12@ANIO 7 - 15 mEq/L [facility] BUN 13 6 - 20 mg/dL [facility] Creatinine 0.70 0.50 - 0.90 mg/dL [facility] Glucose 89 65 - 99 mg/dL [facility] Calcium 9.1 8.3 - 10.2 mg/dL [facility] Protein 6.8 6.3 - 8.3 g/dL [facility] Comment: [facility] 4.6-7.0 g/dL 1 week 4.4-7.6 g/dL 7 months-1year 5.1-7.3 g/dL 1-2 years5.6-7 .5 g/dL >3 years6.0-8 .0 g/dL 18-150 6.3-8.3 g/dL Albumin 3.5 3.5 - 5.0 g/dL [facility] A/G ratio 1.1 0.7 - 3.8 [facility] Alkaline 129 (H) 35 - 104 U/L [facility] phosphatase [facility] AST 26 10 - 35 U/L [facility] ALT 30 5 - 50 U/L [facility] Total bilirubin 0.2 0.0 - 1.2 mg/dL [facility] Specimen Plasma specimen Performing Organization Address City/State/Zipcode Phone Number [facility] [place] [id number] [place] [address] [place] [address] PATHOLOGY AND GENOMIC MEDICINE [facility] [id number] [place] [address] * Urinalysis screen and microscopy, with reflex to culture (03/08/2019 3:00 PM CDT) Specimen site Clean catch [facility] Color, UA Yellow [facility] Appearance, UA Cloudy [facility] Specific 1.021 1.001 - 1.035 DAISY gravity, UA [facility] pH, UA 5.0 5.0 - 8.5 [facility] Protein, UA Negative Negative [facility] Glucose, UA Negative Negative [facility] Ketones, UA Negative Negative [facility] Bilirubin, UA Negative Negative [facility] Blood, UA Small (A) Negative [facility] Nitrite, UA Negative Negative [facility] Urobilinogen, Negative <2.0 [facility] Leukocyte Negative Negative [facility] esterase, UA [facility] Epithelial Many Few /HPF DAISY cells, UA [facility] Round Many 0 - 1 /HPF [facility] epithelial [facility] cells, [facility] WBC, UA 21-40 (H) 0 - 4 /HPF [facility] RBC, UA 0-5 0 - 5 /HPF [facility] Bacteria, UA Few None seen [facility] WBC clumps, UA Few (A) [facility] Yeast, UA None seen [facility] Yeast with None seen [facility] Specimen Urine Performing Organization Address City/State/Zipcode Phone Number [facility] DEPARTMENT OF [address] [place] [address] [place] [address] PATHOLOGY AND GENOMIC MEDICINE [facility] [address] [place] [address] [place] [phone] [facility] * ECG ED Preliminary Interpretation - Not an Order (03/08/2019 1:40 PM CDT) Narrative Performed At [facility] 03/09/2019 11:46 AM ECG ED Preliminary Interpretation - Not an Order Performed by: Lyndsey Cevallos PA-C Authorized by: Lyndsey Cevallos PA-C ECG reviewed by ED Physician in the absence of a rebar bender: yes Interpretation: Interpretation: normal Rate: ECG rate:72 [...] normal limits. There is no acute fracture. [id number] Procedure Note Hm Interface, Radiology Results Incoming [...] normal limits. There is no acute fracture. [id number] Performing Organization Address City/State/Zipcode Phone Number [facility] [address] [place] [address] after 05/15/2018 Insurance Type Payer Benefit Subscriber ID Effective Phone Address Plan / Dates Group Medicaid MEDICAID MEDICAID xxxxxxxxx [id number] resent HMO [facility] MEDICARE [facility] DUAL xxxxxxxxx 2017-P COMPLETE resent [facility] Advance Directives For more information, please contact: [phone] Patient Senior Information Security Engineer Explanation Type Date Recorded Advance Directives, 03/08/2019 12:55 PM Living Will and Medical Power of Doorperson Or Luggage [place]
--- OUTSIDE RECORDS SUMMARY | 2019-05-16 10:45 | XMS REPORT | Continuity of Care Document ---
Author Author [facility] [employer] Information [place] Address Unknown Phone Unavailable Care Team Providers Care Audit Spec Name Role Phone [facility] Information [place] Unavailable Unavailable Problems No Data Provided for This Section Medications Medication Details Route Status Patient Instructions Ordering Provider Order Date Source Diazepam (Valium) 5 Mg Tablet Every 6 Hours as needed for Muscle Spasms Active [place] 02/23/2019 [facility] Tramadol Hcl (Ultram) 50 Mg Tablet Every 6 Hours as needed for Pain Active [place] 02/23/2019 [facility] Alprazolam (Xanax) 1 Mg Tablet, As Needed Active 03/22/2013 [facility] Desloratadine (Clarinex) 5 Mg Tablet, Active 03/22/2013 [facility] Methocarbamol (Robaxin) 500 Mg Tablet, Active 03/22/2013 [facility] Montelukast Sodium (Singulair) 10 Mg Tablet, Active 03/22/2013 [facility] Carisoprodol (Soma) 350 Mg Tablet, As Needed Active 10/24/2012 [facility] Gabapentin 100 Mg Capsule Unknown Dose Active [facility] Hydrocodone Bit/Acetaminophen ([place] 10-325 Tablet) 1 Each Tablet As Needed Active [facility] Montelukast Sodium (Singulair) 10 Mg Tablet Active [facility] Naproxen (Naprosyn) 500 Mg Tablet Unknown Dose Active [facility] Allergies, Adverse Reactions, Alerts Substance Category Reaction Severity Reaction type Status Date Reported Comments Source Morphine rash Mild Allergy to Substance Active 10/30/2011 [facility] promethazine HCl HIVES Unknown Allergy to Substance Active 12/01/2018 [facility] Meperidine rash Mild Allergy to Substance Active 12/01/2018 [facility] No Known Drug Allergies Unknown Allergy to Substance Active 02/23/2019 [facility] Immunizations No Data Provided for This Section Results Order Name Results Value Reference Range Date Interpretation Comments Source Urine human chorionic gonadotropin (hCG) detection NEGATIVE NEGATIVE 12/01/2018 [facility] Blood leukocytes automated count (number/volume) 11.03 4.8 - 10.8 12/01/2018 [facility] Blood erythrocytes automated count (number/volume) 4.24 3.6 - 5.1 12/01/2018 [facility] Blood hemoglobin measurement (moles/volume) 12.6 12.0 - 16.0 12/01/2018 [facility] Automated blood hematocrit (volume fraction) 39.0 34.2 - 44.1 12/01/2018 [facility] Automated erythrocyte mean corpuscular volume 92.0 81 - 99 12/01/2018 [facility] Automated erythrocyte mean corpuscular hemoglobin (mass per erythrocyte) 29.7 28 - 32 12/01/2018 [facility] Automated erythrocyte mean corpuscular hemoglobin concentration measurement (mass/volume) 32.3 31 - 35 12/01/2018 [facility] RDW BldCo-Rto 14.5 11.7 - 14.4 12/01/2018 [facility] Automated blood platelet count (count/volume) 291 140 - 360 12/01/2018 [facility] Automated blood segmented neutrophil count as percentage of total leukocytes 60.8 38.7 - 80.0 12/01/2018 [facility] Automated blood lymphocyte count as percentage ot total leukocytes 28.9 18.0 - 39.1 12/01/2018 [facility] Automated blood monocyte count as percentage of total leukocytes 7.4 4.4 - 11.3 12/01/2018 [facility] Automated blood eosinophil count as percentage of total leukocytes 1.9 0.0 - 6.0 12/01/2018 [facility] Automated blood basophil count as percentage of total leukocytes 0.5 0.0 - 1.0 12/01/2018 [facility] IM GRANULOCYTES % 0.5 0.0 - 1.0 12/01/2018 [facility] Automated blood neutrophil count 6.7 2.1 - 6.9 12/01/2018 [facility] Blood lymphocytes count (number/volume) 3.2 1.0 - 3.2 12/01/2018 [facility] Blood monocytes automated count (number/volume) 0.8 0.2 - 0.8 12/01/2018 [facility] Automated blood eosinophil count 0.2 0.0 - 0.4 12/01/2018 [facility] Automated blood basophil count (count/volume) 0.1 0.0 - 0.1 12/01/2018 [facility] Absolute Immature Granulocyte (auto 0.06 0 - 0.1 12/01/2018 [facility] Serum or plasma sodium measurement (moles/volume) 134 136 - 145 12/01/2018 [facility] Serum or plasma potassium measurement (moles/volume) 3.5 3.5 - 5.1 12/01/2018 [facility] Serum or plasma chloride measurement (moles/volume) 103 98 - 107 12/01/2018 [facility] Serum or plasma carbon dioxide, total measurement (moles/volume) 24 22 - 29 12/01/2018 [facility] Serum or plasma anion gap 10.5 8 - 16 12/01/2018 [facility] Serum or plasma urea nitrogen measurement (mass/volume) 15 7 - 26 12/01/2018 [facility] Serum or plasma creatinine measurement (mass/volume) 0.66 0.57 - 1.11 12/01/2018 [facility] Serum or plasma urea nitrogen/creatinine mass ratio 23 6 - 25 12/01/2018 [facility] Estimated glomerular filtration rate (GFR) determination > 60 60 12/01/2018 [facility] Glucose measurement 105 74 - 118 12/01/2018 [facility] Serum or plasma calcium measurement (mass/volume) 8.6 8.4 - 10.2 12/01/2018 [facility] Serum or plasma total bilirubin measurement (mass/volume) 0.2 0.2 - 1.2 12/01/2018 [facility] Aspartate Amino Transf (AST/SGOT) 14 5 - 34 12/01/2018 [facility] Serum or plasma alanine aminotransferase measurement (enzymatic activity/volume) 13 0 - 55 12/01/2018 [facility] Serum or plasma protein measurement (mass/volume) 6.7 6.5 - 8.1 12/01/2018 [facility] Serum or plasma albumin measurement (mass/volume) 3.1 3.5 - 5.0 12/01/2018 [facility] Plasma globulin measurement (mass/volume) 3.6 2.3 - 3.5 12/01/2018 [facility] Serum or plasma albumin/globulin mass ratio 0.9 0.8 - 2.0 12/01/2018 [facility] Serum or plasma alkaline phosphatase measurement (enzymatic activity/volume) 88 40 - 150 12/01/2018 [facility] BNP Bld-mCnc < 10.0 0 - 100 12/01/2018 [facility] Troponin I measurement by highly sensitive enzyme immunoassay 0.003 0 - 0.300 12/01/2018 [facility] Pathology Reports No Data Provided for This [...] DC Date Status Source Departed Emergency Room [id number] LEYDI JOHNSON MD 12/01/2018 12/01/2018 [facility] Departed Emergency Room [id number] QUENTIN HOWARD MD 02/23/2019 02/23/2019 [facility] Procedures Procedure Code Date Perfomer Comments Source X-ray of chest, two views [id number] 12/01/2018 [facility] Assessment and Plan No Data Provided for This Section Plan of Care Plan of Care Date Source Discharge Date 02/23/19 6:35pm Disposition HOME, SELF-CARE Condition at Discharge Stable Instructions/Education Provided Cervical Radiculopathy Cervical Strain Forms Provided Work/School Excuse Prescriptions See Medication Section Referrals JB SHERWOOD M.D. Order Date: Call for an appointment Address: [address] [place] [id number] Additional Instructions/Education No heavy lifting or [...] increased pain, or any new concerns. 02/23/2019 [facility] Discharge Date 12/01/18 10:24am Disposition HOME, SELF-CARE Condition at Discharge Stable Instructions/Education Provided Chest Pain - Noncardiac Chest Pain - Chest Wall Forms Provided Work/School Excuse Prescriptions See Medication Section Additional Instructions/Education FOLLOW UP WITH YOUR PRIMARY DOCTOR TAKE MEDICATIONS PRESCRIBED RETURN TO EMERGENCY ROOM FOR WORSENING SYMPTOMS 12/01/2018 [facility] Social History Social History Date Source Smoking Status Start Date Stop Date Current every day smoker 02/23/2019 [facility] Family History No Data Provided for This Section Advance Directives Order Name Results Value Date Source Advance Directives Advance Directives Directive Response Recorded Date/Time Does the patient have an advance directive? No 12/29/08 10:38pm Do you have a Directive to Physician? No 02/23/19 5:24pm Do you have a Medical Power of Scientific Photographer? No 02/23/19 5:24pm Do you have an [...] rights and responsibilities? Yes 02/23/19 5:24pm 02/23/2019 [facility] Advance Directives Advance Directives Directive Response Recorded Date/Time Does the patient have an advance directive? No 12/29/08 10:38pm Do you have a Directive to Physician? No 12/01/18 8:30am Do you have a Medical Power of Scientific Photographer? No 12/01/18 8:30am Do you have an [...] rights and responsibilities? Yes 12/01/18 8:30am 12/01/2018 [facility] Functional Status No Data Provided for This Section
[2019-05-16] MEDS ORDERED: SODIUM CHLORIDE 0.9% 1000ML 1,000 ML IV SCH (11:30)
[2019-05-16 11:50] LABS: BASOPHILS % 0.4 % (0.0-1.0); EOSINOPHILS # (AUTO) 0.1 (0.0-0.4); HEMATOCRIT 41.1 % (34.2-44.1); HEMOGLOBIN 13.5 g/dL (12.0-16.0); LYMPHOCYTES # (AUTO) 2.3 (1.0-3.2); LYMPHOCYTES % 22.9 % (18.0-39.1); MEAN CORPUSCULAR HEMOGLOBIN 29.7 pg (28-32); MEAN CORPUSCULAR HGB CONC 32.8 g/dL (31-35); MEAN CORPUSCULAR VOLUME 90.3 fL (81-99); MONOCYTES # (AUTO) 0.7 (0.2-0.8); MONOCYTES % 7.1 % (4.4-11.3); NEUTROPHILS # (AUTO) 6.8 (2.1-6.9); NEUTROPHILS % 68.3 % (38.7-80.0); PLATELET COUNT 256 x10e3/uL (140-360); RED BLOOD COUNT 4.55 x10e6/uL (3.6-5.1); RED CELL DISTRIBUTION WIDTH 15.6 % (11.7-14.4)
[2019-05-16] MEDS ORDERED: ONDANSETRON HCL INJ 2MG/ML 2ML 2 MG/ML VIAL IV ONE (12:00)
[2019-05-16] MEDS ORDERED: FENTANYL CITRATE/PF 100MCG/2 ML INJ IV ONE (12:00)
[2019-05-16 12:05] LABS: BILIRUBIN,URINE NEGATIVE (NEGATIVE); CLARITY,URINE CLEAR (CLEAR); COLOR,URINE YELLOW (YELLOW); KETONES,URINE NEGATIVE (NEGATIVE); LEUKOCYTE ESTERASE ,URINE SMALL (NEGATIVE); NITRITE,URINE NEGATIVE (NEGATIVE); PROTEIN,URINE DIPSTICK NEGATIVE (NEGATIVE); URINE UROBILINOGEN 0.2 mg/dL (0.2 - 1)
[2019-05-16 12:20] LABS: BACTERIA,URINE MODERATE /HPF; BENZODIAZEPINES SCREEN,URINE POSITIVE (NEGATIVE); EPITHELIAL CELLS,URINE MODERATE /LPF; RBC,URINE 0-5 /HPF (0-5)
[2019-05-16 12:21] LABS: AMPHETAMINES SCREEN,URINE NEGATIVE (NEGATIVE); PHENCYCLIDINE SCREEN,URINE NEGATIVE (NEGATIVE)
[2019-05-16 12:23] LABS: ALANINE AMINOTRANSFERASE 14 IU/L (0-55); ALBUMIN 3.7 g/dL (3.5-5.0); ALBUMIN/GLOBULIN RATIO 1.1 (0.8-2.0); ALKALINE PHOSPHATASE 79 IU/L (40-150); ANION GAP 11.4 mmol/L (8-16); BLOOD UREA NITROGEN 16 mg/dL (7-26); BUN/CREATININE RATIO 23 (6-25); CALCIUM 9.3 mg/dL (8.4-10.2); CARBON DIOXIDE 20 mmol/L (22-29); CHLORIDE 108 mmol/L (98-107); CREATININE, SERUM 0.71 mg/dL (0.57-1.11); EST GLOMERULAR FILTRATION RATE > 60 ML/MIN (60-); GLUCOSE 95 mg/dL (74-118); POTASSIUM 4.4 mmol/L (3.5-5.1); SODIUM 135 mmol/L (136-145)
--- NOTE | 2019-05-16 12:50 | NUR ---
ER MD entered ER office and reported that pt was cursing and yelling at MD. this nurse entered room and measured VS. asked patient about discussion between her and ERMD. patient became more beligerant than she was on arrival only now instead of verbalizing personal discomfort, patient was now verbally attacking ER MD, and ER staff for not addressing her pain. expressed that iv pain meds were ordered and given as ordered. patient stated it was not enough for her pain and needed additional pain meds. ER md made aware and was advised that patient was being discharged with follow up instructions. ER charge nurse printed discharge instructions and went to discharge patient. patient became more beligerant and cussing staff. iv discontinued and patient signed for discharge paperwork. security in the ER. patient threw paperwork on the floor. patient threw linen knocking cross off wall. patient went into [facility] and left with trash thrown on floor and armband left on floor. patient was then observed leaving ER through ambulance bay where she then stood outside her families vehicle cursing and yelling at her family. patient did enter personal vehicle and departed with family. all personal belongings departed with patient.
== END 2019-05-16 13:24 | disposition home or self-care (01) ==
LOC: ER 10:42
DX: R10.33 Periumbilical pain (principal); E66.01 Morbid (severe) obesity due to excess calories; F12.10 Cannabis abuse, uncomplicated; F13.10 Sedative, hypnotic or anxiolytic abuse, uncomplicated; F17.210 Nicotine dependence, cigarettes, uncomplicated
CPT/HCPCS: 36415; 80053; 80307; 81001; 81025; 83735; 85025; 99284; J2405; J3010; J7030

== ENCOUNTER 2020-04-26 10:45 | Outpatient (RCR) | payer MEDICARE | END 2020-05-13 | LOC: WCC 10:45 | PROVIDERS: ATTEND Internal Medicine Infectious Disease | DX: T31.0 Burns involving less than 10% of body surface (principal); I10 Essential (primary) hypertension; I25.10 Atherosclerotic heart disease of native coronary artery without angina pectoris; X10.1XXA Contact with hot food, initial encounter ==

== ENCOUNTER 2023-02-24 11:40 | Emergency (ER) | payer MEDICARE ==
[~2023-02-24] VITALS: Ht 165.1 cm; Wt 136.1 kg
[~2023-02-24 11:40] MED LIST changes: +CLONIDINE HCL0.1 MG PO; +METOPROLOL PO
[2023-02-24] MEDS ORDERED: SODIUM CHLORIDE 0.9% 1000ML 1,000 ML IV STA (11:44)
[2023-02-24] MEDS ORDERED: ONDANSETRON HCL INJ 2MG/ML 2ML 2 MG/ML VIAL IV PRN (11:45)
[2023-02-24 12:10] LABS: BASOPHILS # (AUTO) 0.1 (0.0-0.1); BASOPHILS % 0.7 % (0.0-1.0); EOSINOPHILS # (AUTO) 0.1 (0.0-0.4); EOSINOPHILS % 1.3 % (0.0-6.0); HEMOGLOBIN 12.9 g/dL (12.0-16.0); LYMPHOCYTES # (AUTO) 1.8 (1.0-3.2); LYMPHOCYTES % 24.3 % (18.0-39.1); MEAN CORPUSCULAR HEMOGLOBIN 30.2 pg (28-32); MEAN CORPUSCULAR HGB CONC 33.1 g/dL (31-35); MEAN CORPUSCULAR VOLUME 91.3 fL (81-99); MONOCYTES # (AUTO) 0.4 (0.2-0.8); MONOCYTES % 4.8 % (4.4-11.3); NEUTROPHILS # (AUTO) 5.1 (2.1-6.9); NEUTROPHILS % 68.5 % (38.7-80.0); PLATELET COUNT 233 x10e3/uL (140-360); RED BLOOD COUNT 4.27 x10e6/uL (3.6-5.1); RED CELL DISTRIBUTION WIDTH 15.3 % (11.7-14.4)
[2023-02-24 12:33] LABS: ALBUMIN 3.4 g/dL (3.5-5.0); ANION GAP 11.5 mmol/L (8-16); CALCIUM 8.5 mg/dL (8.4-10.2); CREATININE, SERUM 0.67 mg/dL (0.57-1.11); POTASSIUM 3.5 mmol/L (3.5-5.1)
[2023-02-24 13:13] LABS: AMPHETAMINES SCREEN,URINE NEGATIVE (NEGATIVE); BENZODIAZEPINES SCREEN,URINE NEGATIVE (NEGATIVE); PHENCYCLIDINE SCREEN,URINE NEGATIVE (NEGATIVE)
[2023-02-24 13:18] LABS: CLARITY,URINE SL CLOUDY (CLEAR); COLOR,URINE YELLOW (YELLOW); KETONES,URINE NEGATIVE (NEGATIVE); LEUKOCYTE ESTERASE ,URINE NEGATIVE (NEGATIVE); NITRITE,URINE NEGATIVE (NEGATIVE); PROTEIN,URINE DIPSTICK TRACE (NEGATIVE); URINE UROBILINOGEN 0.2 mg/dL (0.2 - 1)
[2023-02-24 13:30] VITALS: O2SAT 100
[2023-02-24] MEDS ORDERED: ONDANSETRON ODT4 MG PO (13:33)
[2023-02-24 13:35] LABS: BACTERIA,URINE RARE /HPF; EPITHELIAL CELLS,URINE MODERATE /LPF; RBC,URINE 0-5 /HPF (0-5); WBC,URINE (MAN) 0-5 /HPF (0-5)
[2023-02-24] MEDS ORDERED: SODIUM CHLORIDE 0.9% 1000ML 1,000 ML IV SCH (14:00)
== END 2023-02-24 14:00 | disposition home or self-care (01) ==
LOC: ER 11:45
DX: R11.2 Nausea with vomiting, unspecified (principal); R39.198 Other difficulties with micturition; N80.9 Endometriosis, unspecified; M79.7 Fibromyalgia; E66.01 Morbid (severe) obesity due to excess calories
CPT/HCPCS: 36415; 74176; 80053; 80307; 81001; 83690; 84702; 85025; 99284; J2405; J7030

== ENCOUNTER 2023-03-13 13:15 | Emergency (ER) | payer MEDICARE ==
[~2023-03-13] VITALS: Ht 165.1 cm; Wt 136.1 kg
[2023-03-13 13:15] VITALS: O2SAT 98
[~2023-03-13 13:15] MED LIST changes: +ONDANSETRON ODT4 MG PO
[2023-03-13] MEDS ORDERED: ORPHENADRINE CITRATE 30 MG/ML VIAL IM ONE (13:45)
== END 2023-03-13 14:10 | disposition home or self-care (01) ==
LOC: ER 13:25
DX: G89.29 Other chronic pain (principal); E66.01 Morbid (severe) obesity due to excess calories; M79.7 Fibromyalgia; N80.9 Endometriosis, unspecified; M54.9 Dorsalgia, unspecified; I10 Essential (primary) hypertension; Z68.42 Body mass index [BMI] 45.0-49.9, adult; Z87.440 Personal history of urinary (tract) infections
CPT/HCPCS: 99283